=== PATIENT | male | born 1955 ===

== ENCOUNTER 2025-05-13 09:00 | Inpatient (IN) | payer OTHER ==
[~2025-05-13] VITALS: Ht 167.6 cm; Wt 88.9 kg
[2025-05-13] MEDS ORDERED: ZESTRIL40 M1 PO (10:55)
[2025-05-13] MEDS ORDERED: METFORMIN HCL500 M3 PO (10:55)
[2025-05-13 10:56] VITALS: BP 140/87
[2025-05-13 11:10] LABS: BASO % 0.4 % (0.1-1.2); EOS # 0.03 (0.04-0.54); EOS % 0.3 % (0.7-7.0); LYMPH # 0.92 (1.18-3.74); LYMPH % 8.6 % (19.3-53.1); MEAN PLATELET VOLUME 10.10 fl (9.4-12.4); MONO # 0.51 (0.24-0.82); MONO % 4.8 % (4.7-12.5); NEUT # 9.11 (1.56-6.13); NEUT % 85.5 % (34.0-71.1); RED CELL DISTRIBUTION WIDTH 14.2 % (11.6-14.4)
[2025-05-13 11:26] LABS: COVID-19 AG NEGATIVE (NEGATIVE)
[2025-05-13 11:27] LABS: INR 0.98
[2025-05-13 11:31] LABS: URINE APPEARANCE Clear; URINE BILIRRUBIN Negative (NEGATIVE); URINE BLOOD Negative; URINE COLOR Yellow; URINE KETONE Negative (NEGATIVE); URINE LEUKOCYTE Trace; URINE NITRATE Negative; URINE PROTEIN Negative (NEGATIVE); URINE UROBILINOGEN 0.2 E.U./dl
[2025-05-13 11:32] LABS: URINE BACTERIA 10.8 uL (0.0-1933); URINE EPITHELIAL CELLS 1.8 uL (0.0-38.8); URINE WBC 5.2 uL (0.0-23.2)
[2025-05-13 11:34] LABS: URINE CAST 0.14 uL (0.0-1.40); URINE GLUCOSE 500 MG/DL (NEGATIVE); URINE RBC 1.1 uL (0.0-20.8)
[2025-05-13 11:46] LABS: BUN CREA RATIO 20.0 (7.0-25.0); CREATININE SERUM 1.23 mg/dL (0.70-1.30); GFR 58.52; OSMOLALITY SERUM 291.0 MOSM/KG (275-295)
[2025-05-13 11:52] LABS: GLUCOSE FASTING 229.0 mg/dL (65-100)
[2025-05-15] MEDS ORDERED: CEFAZOLIN SODIUM 1,000 MG VIAL ONE ×2 (12:16→21:18)
[2025-05-15] MEDS ORDERED: ENOXAPARIN SODIUM 40 MG/0.4 ML SYRINGE SUBCUTANEO ONE (12:50)
[2025-05-15] MEDS ORDERED: BUPIVACAINE HCL/MPF 0.5% 30ML VIAL ONE ×2 (12:54→13:35)
[2025-05-15] MEDS ORDERED: HEMOSTATIC MATRIX 1 KIT KIT TOP ONE (14:03)
[2025-05-15] MEDS ORDERED: SURGIFLO APPLICATOR 1 EACH APPL TOP ONE (14:03)
[2025-05-15] MEDS ORDERED: DEXTROSE 50 % IN WATER 0.5 G/ML VIAL IV PRN (16:45)
[2025-05-15] MEDS ORDERED: INSULIN LISPRO 1,000 UNIT/10 ML UNITS SUBCUTANEO PRN (16:45)
[2025-05-15] MEDS ORDERED: RINGERS SOLUTION,LACTATED 1,000 ML IV SCH (16:45)
[2025-05-15] MEDS ORDERED: ONDANSETRON HCL 2 MG/ML VIAL IV PRN (16:45)
[2025-05-15] MEDS ORDERED: GABAPENTIN 300 MG CAPSULE PO SCH (17:00)
[2025-05-15] MEDS ORDERED: KETOROLAC TROMETHAMINE 30 MG VIAL ONE ×2 (17:32→23:48)
[2025-05-15] MEDS ORDERED: KETOROLAC TROMETHAMINE 30 MG VIAL IV SCH (18:00)
[2025-05-15] MEDS ORDERED: INSULIN LISPRO 1,000 UNIT/10 ML UNITS SUBCUTANEO ONE (18:48)
[2025-05-15 19:46] LABS: BASO % 0.2 % (0.1-1.2); EOS # 0.00 (0.04-0.54); EOS % 0.0 % (0.7-7.0); LYMPH # 0.79 (1.18-3.74); LYMPH % 5.0 % (19.3-53.1); MEAN PLATELET VOLUME 10.10 fl (9.4-12.4); MONO # 0.69 (0.24-0.82); MONO % 4.4 % (4.7-12.5); NEUT # 14.26 (1.56-6.13); NEUT % 90.0 % (34.0-71.1); RED CELL DISTRIBUTION WIDTH 14.0 % (11.6-14.4)
[2025-05-15] MEDS ORDERED: FAMOTIDINE/PF 20 MG/2 ML VIAL IV SCH (21:00)
[2025-05-15] MEDS ORDERED: CEFAZOLIN SODIUM 1,000 MG VIAL IV SCH (21:00)
[2025-05-15] MEDS ORDERED: FAMOTIDINE/PF 20 MG/2 ML VIAL ONE (21:18)
[2025-05-15] MEDS ORDERED: GABAPENTIN 300 MG CAPSULE PO ONE (23:47)
[2025-05-16] MEDS ORDERED: KETOROLAC TROMETHAMINE 30 MG VIAL ONE (06:30)
[2025-05-16 06:40] LABS: BASO % 0.4 % (0.1-1.2); EOS # 0.03 (0.04-0.54); EOS % 0.4 % (0.7-7.0); LYMPH # 0.75 (1.18-3.74); LYMPH % 8.8 % (19.3-53.1); MEAN PLATELET VOLUME 10.20 fl (9.4-12.4); MONO # 0.83 (0.24-0.82); MONO % 9.7 % (4.7-12.5); NEUT # 6.89 (1.56-6.13); NEUT % 80.3 % (34.0-71.1); RED CELL DISTRIBUTION WIDTH 13.9 % (11.6-14.4)
[2025-05-16 07:09] LABS: BUN CREA RATIO 19.0 (7.0-25.0); CREATININE SERUM 1.03 mg/dL (0.70-1.30); GFR 71.81; GLUCOSE FASTING 140.0 mg/dL (65-100); OSMOLALITY SERUM 286.0 MOSM/KG (275-295)
[2025-05-16] MEDS ORDERED: ENOXAPARIN SODIUM 40 MG/0.4 ML SYRINGE SUBCUTANEO SCH (09:00)
[2025-05-16] MEDS ORDERED: LISINOPRIL 40 MG TABLET PO SCH (09:00)
== END 2025-05-16 09:55 | disposition home or self-care (01) | DRG 708 ==
LOC: SURH 05-15 09:00 → O/R 05-15 11:00
PROVIDERS: ADMIT Urology; ATTEND Urology
PROC: 07BC4ZZ Excision of Pelvis Lymphatic, Percutaneous Endoscopic Approach (ICD-10-PCS; 2025-05-15)
PROC: 8E0W4CZ Robotic Assisted Procedure of Trunk Region, Percutaneous Endoscopic Approach (ICD-10-PCS; 2025-05-15)
PROC: 0VT04ZZ Resection of Prostate, Percutaneous Endoscopic Approach (ICD-10-PCS; principal; 2025-05-15 11:45)
DX: C61 Malignant neoplasm of prostate (principal)
CPT/HCPCS: 55866; 38571; S2900

== ENCOUNTER 2025-05-15 06:07 | Outpatient (CLI) | payer OTHER ==
[~2025-05-15 06:07] MED LIST: METFORMIN HCL500 M3 PO; ZESTRIL40 M1 PO
[2025-05-15 07:45] LABS: BUN CREA RATIO 19.0 (7.0-25.0); CREATININE SERUM 1.24 mg/dL (0.70-1.30); GFR 57.97; GLUCOSE FASTING 172.0 mg/dL (65-100); OSMOLALITY SERUM 289.0 MOSM/KG (275-295)
== END 2025-05-15 06:09 | disposition home or self-care (01) ==
LOC: LAB 06:07
PROVIDERS: ATTEND Internal Medicine
DX: I10 Essential (primary) hypertension (principal)